=== PATIENT | male | born 1990 | race Caucasian/White ===

== ENCOUNTER 2018-01-25 13:42 | Emergency (ER) | payer MEDICAID ==
[~2018-01-25] VITALS: Ht 170.2 cm; Wt 82.2 kg
[~2018-01-25 13:42] MED LIST: ALBU8HFA PO; CLIN-80 PO; HYDR-3965 PO; IBUP-1986 PO; PENI500T2 PO; PHEN-873 PO
[2018-01-25 14:09] LABS: BASOPHILS % (AUTO) 0.2 % (0-1); EOSINOPHILS # (AUTO) 0.3 X10'3 (0-0.9); EOSINOPHILS % (AUTO) 3.1 % (0-6); HEMATOCRIT 45.8 % (42.0-52.0); HEMOGLOBIN 16.1 g/dl (14.0-17.9); LYMPHOCYTES # (AUTO) 1.4 X10'3 (1.1-4.8); MEAN CORPUSCULAR HEMOGLOBIN 32.9 PG (27.0-31.0); MEAN CORPUSCULAR HGB CONC 35.3 % (33.0-36.5); MEAN CORPUSCULAR VOLUME 93.2 FL (78-98); MEAN PLATELET VOLUME 8.3 FL (7.4-10.4); MONOCYTES # (AUTO) 0.7 X10'3 (0-0.9); MONOCYTES % (AUTO) 7.5 % (2-12); NEUTROPHILS # (AUTO) 6.7 X10'3 (1.8-7.7); NEUTROPHILS % (AUTO) 74.2 % (42-75); PLATELET COUNT 260 X10'3 (140-440); RED BLOOD COUNT 4.91 X10'6 (4.70-6.10); RED CELL DISTRIBUTION WIDTH 12.9 % (11.5-14.5); WHITE BLOOD COUNT 9.1 X10'3 (4.5-11.0)
[2018-01-25 14:24] LABS: ALANINE AMINOTRANSFERASE 45 U/L (12-78); ALBUMIN 4.3 G/DL (3.4-5.0); ALBUMIN/GLOBULIN RATIO 1.1 (1.1-1.5); ALKALINE PHOSPHATASE 85 IU/L (46-116); ANION GAP 8 (8-16); ASPARTATE AMINO TRANSFERASE 22 U/L (10-37); BILIRUBIN,TOTAL 0.4 MG/DL (0.1-1.0); BLOOD UREA NITROGEN 12 MG/DL (7-18); BUN/CREATININE RATIO 11.7 (5.4-32.0); CALCIUM 9.4 MG/DL (8.5-10.1); CHLORIDE 104 MMOL/L (99-107); CREATININE 1.03 MG/DL (0.60-1.10); GLUCOSE 102 MG/DL (70-104); POTASSIUM 4.1 MMOL/L (3.5-5.1); SODIUM 141 MMOL/L (135-145); TOTAL CARBON DIOXIDE 28.6 MMOL/L (24-32); TOTAL PROTEIN 8.3 G/DL (6.4-8.2); eGFR 87 ML/MIN
[2018-01-25] MEDS ORDERED: PRED20TA PO (18:17)
[2018-01-25] MEDS ORDERED: AZIT-63 PO (18:17)
[2018-01-25] MEDS ORDERED: predniSONE 20 mg tablet PO ONE (18:20)
[2018-01-25] MEDS ORDERED: ipratropium/albuterol 3ml nebule NEB ONE (18:25)
[2018-01-25 18:47] VITALS: BP 163/72
== END 2018-01-25 19:00 | disposition home or self-care (01) ==
LOC: ER 13:42
DX: J45.909 Unspecified asthma, uncomplicated (principal); Z79.899 Other long term (current) drug therapy
CPT/HCPCS: 36415; 71045; 80053; 84484; 85025; 93005; 94640; 94760; 99285; J7512

== ENCOUNTER 2018-10-15 20:40 | Emergency (ER) | payer MEDICAID ==
[~2018-10-15] VITALS: Ht 172.7 cm; Wt 81.7 kg
[~2018-10-15 20:40] MED LIST changes: -CLIN-80 PO; +CLIN300C85 PO; +PHEN-786 PO; -PHEN-873 PO
[2018-10-15 21:18] LABS: CLARITY,URINE CLEAR (Clear); COLOR,URINE RED (Yellow); UA COLLECTION TYPE VOIDED
[2018-10-15] MEDS ORDERED: ondansetron/PF 4mg/2ml inj IV ONE (21:25)
[2018-10-15] MEDS ORDERED: normal saline 1000ML IV soln IVB ONE (21:25)
[2018-10-15 21:29] LABS: BACTERIA,URINE FEW /HPF (Neg); RBC,URINE NONE SEEN /HPF (0-2)
[2018-10-15 21:30] LABS: MUCUS STRANDS MODERATE /LPF (Neg); SQUAMOUS EPITHELIAL CELL,UR FEW /LPF (FEW)
[2018-10-15 21:37] LABS: BASOPHILS # (AUTO) 0.1 X10'3 (0-0.2); BASOPHILS % (AUTO) 0.6 % (0-1); EOSINOPHILS # (AUTO) 0.1 X10'3 (0-0.9); EOSINOPHILS % (AUTO) 1.4 % (0-6); HEMATOCRIT 49.3 % (42.0-52.0); HEMOGLOBIN 16.7 g/dl (14.0-17.9); LYMPHOCYTES # (AUTO) 4.9 X10'3 (1.1-4.8); LYMPHOCYTES % (AUTO) 48.5 % (21-51); MEAN CORPUSCULAR HEMOGLOBIN 31.6 PG (27.0-31.0); MEAN CORPUSCULAR HGB CONC 33.9 % (33.0-36.5); MEAN CORPUSCULAR VOLUME 93.3 FL (78-98); MEAN PLATELET VOLUME 7.7 FL (7.4-10.4); MONOCYTES # (AUTO) 0.9 X10'3 (0-0.9); MONOCYTES % (AUTO) 9.2 % (2-12); NEUTROPHILS # (AUTO) 4.1 X10'3 (1.8-7.7); NEUTROPHILS % (AUTO) 40.3 % (42-75); PLATELET COUNT 284 X10'3 (140-440); RED BLOOD COUNT 5.28 X10'6 (4.70-6.10); RED CELL DISTRIBUTION WIDTH 14.2 % (11.5-14.5); WHITE BLOOD COUNT 10.2 X10'3 (4.5-11.0)
[2018-10-15 21:53] LABS: ALANINE AMINOTRANSFERASE 60 U/L (12-78); ALBUMIN 4.3 G/DL (3.4-5.0); ALBUMIN/GLOBULIN RATIO 0.9 (1.1-1.5); ALKALINE PHOSPHATASE 117 IU/L (46-116); ANION GAP 10 (8-16); BILIRUBIN,TOTAL 0.7 MG/DL (0.1-1.0); BLOOD UREA NITROGEN 9 MG/DL (7-18); BUN/CREATININE RATIO 10.1 (5.4-32.0); CALCIUM 9.6 MG/DL (8.5-10.1); CHLORIDE 101 MMOL/L (99-107); CREATININE 0.89 MG/DL (0.60-1.10); GLUCOSE 108 MG/DL (70-104); LIPASE 105 U/L (73-393); SODIUM 137 MMOL/L (135-145); TOTAL CARBON DIOXIDE 25.9 MMOL/L (24-32); TOTAL PROTEIN 8.9 G/DL (6.4-8.2); eGFR > 90 ML/MIN
[2018-10-15 21:55] LABS: ASPARTATE AMINO TRANSFERASE 51 U/L (10-37); POTASSIUM 4.1 MMOL/L (3.5-5.1)
[2018-10-15 22:56] VITALS: BP 140/89
[2018-10-15 23:07] LABS: CLARITY,URINE CLEAR (Clear); COLOR,URINE ORANGE (Yellow)
[2018-10-15 23:22] LABS: UA COLLECTION TYPE CLN CATCH MIDSTREAM
[2018-10-15 23:29] LABS: BACTERIA,URINE FEW /HPF (Neg); MUCUS STRANDS MODERATE /LPF (Neg); RBC,URINE NONE SEEN /HPF (0-2)
[2018-10-15 23:30] LABS: SQUAMOUS EPITHELIAL CELL,UR FEW /LPF (FEW)
[2018-10-16 01:09] LABS: EOSINOPHILS % (MANUAL) 1 % (0-6); TOTAL CELLS COUNTED 100
[2018-10-16 01:10] LABS: PLATELET ESTIMATE NORMAL
== END 2018-10-16 00:11 | disposition home or self-care (01) ==
LOC: ER 20:41
DX: M54.5 Low back pain (principal); R11.2 Nausea with vomiting, unspecified; R10.9 Unspecified abdominal pain; J45.909 Unspecified asthma, uncomplicated; G89.29 Other chronic pain
CPT/HCPCS: 36415; 74176; 80053; 81001; 83690; 85025; 87088; 96361; 96374; 99284; J2405; J7030

== ENCOUNTER 2018-11-19 07:44 | Emergency (ER) | payer MEDICAID ==
[~2018-11-19] VITALS: Ht 170.2 cm; Wt 77.3 kg
[2018-11-19 08:00] VITALS: BP 127/69
[2018-11-19] MEDS ORDERED: NYST1000 PO (08:24)
[2018-11-19] MEDS ORDERED: GUAI473S11 PO (08:24)
== END 2018-11-19 08:37 | disposition home or self-care (01) ==
LOC: ER 07:45
DX: B37.0 Candidal stomatitis (principal); R05 Cough; R53.83 Other fatigue; J45.909 Unspecified asthma, uncomplicated; G89.29 Other chronic pain; F41.9 Anxiety disorder, unspecified; Z79.899 Other long term (current) drug therapy
CPT/HCPCS: 99283

== ENCOUNTER 2020-06-01 14:06 | Emergency (ER) | payer BC, MEDICAID ==
[~2020-06-01] VITALS: Ht 177.8 cm; Wt 90.0 kg
[~2020-06-01 14:06] MED LIST changes: +CLIN-97 PO; -CLIN300C85 PO
[2020-06-01 14:55] LABS: CLARITY,URINE CLOUDY (Clear); COLOR,URINE YELLOW (Yellow); GLUCOSE, URINE NEGATIVE (Neg); KETONES,URINE TRACE mg/dl (Neg); LEUKOCYTE ESTERASE ,URINE NEGATIVE (Neg); NITRITES, URINE NEGATIVE (Neg); OCCULT BLOOD,URINE LARGE (Neg); PH,URINE 5.5 (4.8-8.0); PROTEIN,URINE 30 mg/dl (Neg); UA COLLECTION TYPE CLN CATCH MIDSTREAM; UROBILINOGEN,URINE 0.2 E.U/dL (0.2-1.0)
[2020-06-01 15:03] LABS: MUCUS STRANDS MANY /LPF (Neg); SQUAMOUS EPITHELIAL CELL,UR MANY /LPF (FEW)
[2020-06-01 15:04] LABS: RBC,URINE TNTC /HPF (0-2)
[2020-06-01 15:05] LABS: BACTERIA,URINE 1+ /HPF (Neg); WBC CLUMPS,URINE FEW /HPF (NEGATIVE)
--- NOTE | 2020-06-01 15:27 | NUR ---
Dr Correia at bedside.
[2020-06-01 15:28] VITALS: BP 135/90
[2020-06-01] MEDS ORDERED: morphine 4 MG/ML inj SYRINge IV PRN (15:30)
[2020-06-01] MEDS ORDERED: ketorolac tromethamine 15mg/ml inj. IV ONE (15:30)
[2020-06-01] MEDS ORDERED: ondansetron/PF 4mg/2ml inj IV ONE (15:30)
[2020-06-01] MEDS ORDERED: normal saline 1000ML IV soln IVB ONE (15:30)
--- NOTE | 2020-06-01 15:56 | NUR ---
Pt wants to wait on the Morphine until he sees how he does with the Toradol.
[2020-06-01 15:59] LABS: BASOPHILS % (AUTO) 0.3 % (0-1); EOSINOPHILS # (AUTO) 0.5 X10'3 (0-0.9); EOSINOPHILS % (AUTO) 3.4 % (0-6); HEMATOCRIT 49.6 % (42.0-52.0); LYMPHOCYTES # (AUTO) 1.5 X10'3 (1.1-4.8); LYMPHOCYTES % (AUTO) 11.3 % (21-51); MEAN CORPUSCULAR HEMOGLOBIN 32.2 PG (27.0-31.0); MEAN CORPUSCULAR HGB CONC 34.3 g/dL (33.0-36.5); MEAN PLATELET VOLUME 8.4 FL (7.4-10.4); MONOCYTES # (AUTO) 1.1 X10'3 (0-0.9); NEUTROPHILS # (AUTO) 10.4 X10'3 (1.8-7.7); PLATELET COUNT 237 X10'3 (140-440); RED BLOOD COUNT 5.28 X10'6 (4.70-6.10); RED CELL DISTRIBUTION WIDTH 12.5 % (11.5-14.5); WHITE BLOOD COUNT 13.5 X10'3 (4.5-11.0)
[2020-06-01 16:12] LABS: ALANINE AMINOTRANSFERASE 66 U/L (12-78); ALBUMIN 4.4 G/DL (3.4-5.0); ALBUMIN/GLOBULIN RATIO 1.2 (1.1-1.5); ALKALINE PHOSPHATASE 106 IU/L (46-116); ANION GAP 9 (8-16); ASPARTATE AMINO TRANSFERASE 36 U/L (10-37); BILIRUBIN,TOTAL 0.4 MG/DL (0.1-1.0); BLOOD UREA NITROGEN 16 MG/DL (7-18); CALCIUM 9.4 MG/DL (8.5-10.1); CHLORIDE 107 MMOL/L (99-107); CREATININE 1.14 MG/DL (0.60-1.10); GLUCOSE 101 MG/DL (70-104); LIPASE 105 U/L (73-393); SODIUM 142 MMOL/L (135-145); TOTAL PROTEIN 8.1 G/DL (6.4-8.2); eGFR 75 ML/MIN
--- NOTE | 2020-06-01 16:15 | NUR ---
Pt resting quietly on gurney. Respirations unlabored. NAD
[2020-06-01] MEDS ORDERED: IBUP-1986 PO (16:31)
[2020-06-01] MEDS ORDERED: HYDR-4353 PO (16:31)
== END 2020-06-01 16:57 | disposition home or self-care (01) ==
LOC: ER 14:07
DX: N23 Unspecified renal colic (principal); R11.0 Nausea; J45.909 Unspecified asthma, uncomplicated; G89.29 Other chronic pain; F41.9 Anxiety disorder, unspecified; F17.200 Nicotine dependence, unspecified, uncomplicated; Z79.2 Long term (current) use of antibiotics; Z79.899 Other long term (current) drug therapy
CPT/HCPCS: 36415; 80053; 81001; 83690; 85025; 96374; 96375; 99284; J1885; J2405; J7030

== ENCOUNTER 2020-06-14 11:18 | Emergency (ER) | payer BC ==
[~2020-06-14] VITALS: Ht 172.7 cm; Wt 85.6 kg
[~2020-06-14 11:18] MED LIST changes: +HYDR-4353 PO
[2020-06-14 12:10] LABS: CLARITY,URINE CLEAR (Clear); GLUCOSE, URINE NEGATIVE (Neg); KETONES,URINE TRACE mg/dl (Neg); LEUKOCYTE ESTERASE ,URINE NEGATIVE (Neg); NITRITES, URINE NEGATIVE (Neg); OCCULT BLOOD,URINE TRACE-LYSED (Neg); PH,URINE 5.5 (4.8-8.0); PROTEIN,URINE NEGATIVE (Neg); UROBILINOGEN,URINE 0.2 E.U/dL (0.2-1.0)
[2020-06-14 12:14] LABS: COLOR,URINE DARK YELLOW (Yellow); UA COLLECTION TYPE CLN CATCH MIDSTREAM
[2020-06-14] MEDS ORDERED: ketorolac trometh. 30mg/ml inj. IM ONE (12:25)
[2020-06-14] MEDS ORDERED: HYDROcodone/acetaminophen 10/325mg tab PO ONE (12:25)
[2020-06-14 12:34] LABS: BACTERIA,URINE NONE SEEN /HPF (Neg); MUCUS STRANDS FEW /LPF (Neg); RBC,URINE 0-2 /HPF (0-2); SQUAMOUS EPITHELIAL CELL,UR FEW /LPF (FEW); WBC,URINE 0-4 /HPF (0-4)
[2020-06-14] MEDS ORDERED: HYDR-3973 PO (13:15)
[2020-06-14] MEDS ORDERED: FLO0.4C PO (13:15)
[2020-06-14 13:35] VITALS: BP 146/98
== END 2020-06-14 13:37 | disposition home or self-care (01) ==
LOC: ER 11:18
DX: N20.0 Calculus of kidney (principal); J45.909 Unspecified asthma, uncomplicated; G89.29 Other chronic pain; F41.9 Anxiety disorder, unspecified; Z87.891 Personal history of nicotine dependence; Z79.2 Long term (current) use of antibiotics; Z79.899 Other long term (current) drug therapy
CPT/HCPCS: 74176; 81001; 96372; 99284; J1885

== ENCOUNTER 2020-09-06 22:18 | Emergency (ER) | payer BC ==
[~2020-09-06] VITALS: Ht 175.3 cm; Wt 88.6 kg
[~2020-09-06 22:18] MED LIST changes: +DICY10CA88 PO; -HYDR-4353 PO
[2020-09-06] MEDS ORDERED: normal saline 1000ML IV soln IVB ONE (23:15)
[2020-09-06 23:19] LABS: BASOPHILS # (AUTO) 0.1 X10'3 (0-0.2); BASOPHILS % (AUTO) 0.6 % (0-1); EOSINOPHILS # (AUTO) 0.6 X10'3 (0-0.9); EOSINOPHILS % (AUTO) 5.3 % (0-6); HEMOGLOBIN 17.8 g/dl (14.0-17.9); LYMPHOCYTES # (AUTO) 3.1 X10'3 (1.1-4.8); LYMPHOCYTES % (AUTO) 27.4 % (21-51); MEAN CORPUSCULAR HEMOGLOBIN 32.6 PG (27.0-31.0); MEAN CORPUSCULAR HGB CONC 34.8 g/dL (33.0-36.5); MEAN CORPUSCULAR VOLUME 93.5 FL (78-98); MEAN PLATELET VOLUME 8.7 FL (7.4-10.4); MONOCYTES # (AUTO) 1.1 X10'3 (0-0.9); MONOCYTES % (AUTO) 9.5 % (2-12); NEUTROPHILS # (AUTO) 6.5 X10'3 (1.8-7.7); NEUTROPHILS % (AUTO) 57.2 % (42-75); PLATELET COUNT 255 X10'3 (140-440); RED BLOOD COUNT 5.45 X10'6 (4.70-6.10); RED CELL DISTRIBUTION WIDTH 12.6 % (11.5-14.5); WHITE BLOOD COUNT 11.4 X10'3 (4.5-11.0)
[2020-09-06 23:28] LABS: ALANINE AMINOTRANSFERASE 46 U/L (12-78); ALBUMIN 4.5 G/DL (3.4-5.0); ALBUMIN/GLOBULIN RATIO 1.1 (1.1-1.5); ALKALINE PHOSPHATASE 113 IU/L (46-116); ANION GAP 7 (8-16); ASPARTATE AMINO TRANSFERASE 26 U/L (10-37); BILIRUBIN,TOTAL 0.3 MG/DL (0.1-1.0); BLOOD UREA NITROGEN 11 MG/DL (7-18); CALCIUM 9.1 MG/DL (8.5-10.1); CHLORIDE 105 MMOL/L (99-107); GLUCOSE 96 MG/DL (70-104); POTASSIUM 3.4 MMOL/L (3.5-5.1); SODIUM 139 MMOL/L (135-145); TOTAL CARBON DIOXIDE 27.1 MMOL/L (24-32); TOTAL PROTEIN 8.7 G/DL (6.4-8.2); eGFR 79 ML/MIN
[2020-09-06 23:39] LABS: D-DIMER 0.21 MG/L FEU (0-0.50)
[2020-09-07 00:24] VITALS: BP 108/63
== END 2020-09-07 00:27 | disposition home or self-care (01) ==
LOC: ER 22:19
DX: R07.89 Other chest pain (principal); M79.602 Pain in left arm; R42 Dizziness and giddiness; J45.909 Unspecified asthma, uncomplicated; G89.29 Other chronic pain; F41.9 Anxiety disorder, unspecified; F17.200 Nicotine dependence, unspecified, uncomplicated; Z79.2 Long term (current) use of antibiotics; Z79.899 Other long term (current) drug therapy
CPT/HCPCS: 36415; 71045; 80053; 82948; 83880; 84443; 84484; 85025; 85379; 93005; 96360; 99285; J7030

== ENCOUNTER 2020-10-04 16:21 | Emergency (ER) | payer BC ==
[~2020-10-04] VITALS: Ht 172.7 cm; Wt 86.4 kg
[2020-10-04 16:25] VITALS: BP 146/95
== END 2020-10-04 17:08 | disposition home or self-care (01) ==
LOC: ER 16:22
DX: R50.9 Fever, unspecified (principal); R51.9 Headache, unspecified; M79.10 Myalgia, unspecified site; J44.9 Chronic obstructive pulmonary disease, unspecified; G89.29 Other chronic pain; M54.9 Dorsalgia, unspecified; F41.9 Anxiety disorder, unspecified; F17.200 Nicotine dependence, unspecified, uncomplicated; Z79.899 Other long term (current) drug therapy
CPT/HCPCS: 36415; 87635; 99283

== ENCOUNTER 2022-07-15 14:53 | Emergency (ER) | payer BC ==
[~2022-07-15] VITALS: Ht 172.7 cm; Wt 86.4 kg
[2022-07-15 15:35] VITALS: BP 100/64
--- NOTE | 2022-07-15 16:05 | NUR ---
Positive COVID called received from Lab.
== END 2022-07-15 21:25 | disposition left against medical advice (07) ==
LOC: ER 14:54
DX: U07.1 COVID-19 (principal); M54.89 Other dorsalgia; Z53.21 Procedure and treatment not carried out due to patient leaving prior to being seen by health care provider
CPT/HCPCS: 87635; C9803

== ENCOUNTER 2022-11-23 21:07 | Emergency (ER) | payer BC ==
[~2022-11-23] VITALS: Ht 172.7 cm; Wt 86.4 kg
[2022-11-23 21:44] LABS: CLARITY,URINE SLIGHTLY CLOUDY (Clear); COLOR,URINE YELLOW (Yellow); GLUCOSE, URINE NEGATIVE (Neg); KETONES,URINE NEGATIVE (Neg); LEUKOCYTE ESTERASE ,URINE NEGATIVE (Neg); NITRITES, URINE NEGATIVE (Neg); OCCULT BLOOD,URINE TRACE-INTACT (Neg); PROTEIN,URINE NEGATIVE (Neg); UROBILINOGEN,URINE 0.2 E.U/dL (0.2-1.0)
[2022-11-23 21:49] LABS: UA COLLECTION TYPE VOIDED
[2022-11-23 21:50] LABS: MUCUS STRANDS MODERATE /LPF (Neg); SQUAMOUS EPITHELIAL CELL,UR MODERATE /LPF (FEW)
[2022-11-23 21:51] LABS: WBC,URINE 20-30 /HPF (0-4)
[2022-11-23 21:53] LABS: BACTERIA,URINE FEW /HPF (Neg); WBC CLUMPS,URINE FEW /HPF (NEGATIVE)
[2022-11-23 21:56] LABS: BASOPHILS % (AUTO) 0.3 % (0-1); EOSINOPHILS # (AUTO) 0.3 X10'3 (0-0.9); EOSINOPHILS % (AUTO) 2.3 % (0-6); HEMATOCRIT 48.7 % (42.0-52.0); LYMPHOCYTES % (AUTO) 23.2 % (21-51); MEAN CORPUSCULAR HEMOGLOBIN 31.7 PG (27.0-31.0); MEAN CORPUSCULAR VOLUME 90.6 FL (78-98); MEAN PLATELET VOLUME 8.4 FL (7.4-10.4); MONOCYTES # (AUTO) 1.3 X10'3 (0-0.9); NEUTROPHILS # (AUTO) 8.3 X10'3 (1.8-7.7); NEUTROPHILS % (AUTO) 64.2 % (42-75); PLATELET COUNT 253 X10'3 (140-440); RED BLOOD COUNT 5.38 X10'6 (4.70-6.10); RED CELL DISTRIBUTION WIDTH 12.7 % (11.5-14.5); WHITE BLOOD COUNT 12.9 X10'3 (4.5-11.0)
[2022-11-23 22:12] LABS: ALANINE AMINOTRANSFERASE 54 U/L (12-78); ALBUMIN 3.7 G/DL (3.4-5.0); ALBUMIN/GLOBULIN RATIO 0.9 (1.1-1.5); ALKALINE PHOSPHATASE 121 IU/L (46-116); ANION GAP 10 (8-16); ASPARTATE AMINO TRANSFERASE 31 U/L (10-37); BILIRUBIN,TOTAL 0.4 MG/DL (0.1-1.0); BLOOD UREA NITROGEN 11 MG/DL (7-18); BUN/CREATININE RATIO 11.8 (5.4-32.0); CALCIUM 8.6 MG/DL (8.5-10.1); CHLORIDE 104 MMOL/L (99-107); CREATININE 0.93 MG/DL (0.60-1.10); GLUCOSE 115 MG/DL (70-104); LIPASE 87 U/L (73-393); POTASSIUM 3.5 MMOL/L (3.5-5.1); SODIUM 137 MMOL/L (135-145); TOTAL CARBON DIOXIDE 23.4 MMOL/L (24-32); TOTAL PROTEIN 7.9 G/DL (6.4-8.2); eGFR > 90 ML/MIN
[2022-11-23] MEDS ORDERED: normal saline 1000ML IV soln IVB ONE (23:20)
[2022-11-23] MEDS ORDERED: ketorolac trometh. 30mg/ml inj. IV ONE (23:20)
[2022-11-24] MEDS ORDERED: levoFLOXACIN-Levaquin 750MG/D5 150 ML IV STA (01:02)
[2022-11-24] MEDS ORDERED: metoclopramide 5 mg/ml inj IV ONE (01:05)
[2022-11-24] MEDS: morphine 4 MG/ML inj SYRINge IV ONE ×2 (01:05→01:16)
[2022-11-24] MEDS ORDERED: TRAM1TAB7 PO (01:11)
[2022-11-24] MEDS ORDERED: ONDA4TAB12 PO (01:11)
[2022-11-24] MEDS ORDERED: LEVO-65 PO (01:11)
[2022-11-24 03:05] VITALS: BP 134/74
== END 2022-11-24 03:15 | disposition home or self-care (01) ==
LOC: ER 21:08
DX: N39.0 Urinary tract infection, site not specified (principal); J44.9 Chronic obstructive pulmonary disease, unspecified; G89.29 Other chronic pain; F41.9 Anxiety disorder, unspecified; F17.200 Nicotine dependence, unspecified, uncomplicated; Z87.442 Personal history of urinary calculi; Z79.899 Other long term (current) drug therapy
CPT/HCPCS: 36415; 74176; 80053; 81001; 83690; 85025; 87088; 96361; 96365; 96366; 96375; 99284; J1885; J1956; J2765; J7030; J2270

== ENCOUNTER 2024-07-19 18:07 | Emergency (ER) | payer BC ==
[~2024-07-19] VITALS: Ht 170.2 cm; Wt 86.4 kg
[~2024-07-19 18:07] MED LIST changes: +ONDA-243 PO
[2024-07-19] MEDS: meperidine/PF 50mg/ml syringe IV ONE (18:30)
[2024-07-19] MEDS: ketorolac trometh 30MG/ML vial 30 MG/ML VIAL IV ONE (18:30)
[2024-07-19] MEDS: normal saline 1000ML IV soln IVB ONE ×2 (18:32→19:51)
[2024-07-19] MEDS: sildenafil citrate 20mg tablet PO SCH (18:56)
--- NOTE | 2024-07-19 19:34 | NUR ---
pain improved from day shift interventions. pt to xray [id number], return ed#[id number]. oral med adm per order (see MAR). ivf re-connected. urine obtained and walked to lab by RN approx 1924.
[2024-07-19 19:45] LABS: BILIRUBIN,URINE NEGATIVE (Neg); CLARITY,URINE SLIGHTLY CLOUDY (Clear); COLOR,URINE YELLOW (Yellow); GLUCOSE, URINE NEGATIVE (Neg); KETONES,URINE TRACE mg/dl (Neg); LEUKOCYTE ESTERASE ,URINE NEGATIVE (Neg); NITRITES, URINE NEGATIVE (Neg); OCCULT BLOOD,URINE MODERATE (Neg); PROTEIN,URINE NEGATIVE (Neg)
[2024-07-19 19:51] LABS: UA COLLECTION TYPE VOIDED
[2024-07-19 19:52] LABS: SQUAMOUS EPITHELIAL CELL,UR MODERATE /LPF (FEW)
[2024-07-19 19:55] LABS: BACTERIA,URINE FEW /HPF (Neg); WBC,URINE 0-4 /HPF (0-4)
[2024-07-19 19:56] LABS: MUCUS STRANDS FEW /LPF (Neg)
[2024-07-19] MEDS ORDERED: TADA5TAB2 PO (21:06)
[2024-07-19 21:44] VITALS: BP 136/87; PULSE 74; RESP 16; TEMP 98.7; O2SAT 96
== END 2024-07-19 21:48 | disposition home or self-care (01) ==
LOC: ER 18:07
DX: N23 Unspecified renal colic (principal); J44.9 Chronic obstructive pulmonary disease, unspecified; F41.9 Anxiety disorder, unspecified; Z79.2 Long term (current) use of antibiotics; Z79.1 Long term (current) use of non-steroidal anti-inflammatories (NSAID)
CPT/HCPCS: 74018; 81001; 96361; 96374; 96375; 99284; J1885; J2175; J7030; A6446

== ENCOUNTER → 2025-07-10 | Emergency (ER) | payer BC ==
[~2025-07-10] VITALS: Ht 170.2 cm; Wt 88.0 kg
[~2025-07-10] MED LIST changes: +AMOX-117 PO; +CLIN-224 PO; -CLIN-97 PO; +METR-159 PO; +ONDA-245 PO; +ketorolac trometh 30MG/ML vial 30 MG/ML VIAL IM ONE
[2025-07-10 08:45] VITALS: TEMP 97
--- NOTE | 2025-07-10 09:15 | Physician Documentation ---
History of Present Illness ~ Chief Complaint: Abscess Stated Complaint: ABSCESS Time Seen by MD: 09:15 Primary Medical Doctor: Sd HPI 35-year-old male presents with abscess to coccyx, notes history of this in the past, but never quite this severe. No chills or fever, but does endorse nausea. This is found to be a pilonidal abscess on exam. Tetanus Within 5 Years: Yes Medication Reconciliation Allergies: Coded Allergies: No Known Allergies (Unverified , 11/23/22) Scheduled Amox Tr/Potassium Clavulanate (Augmentin 875-125 Tablet), 1 TAB PO Q12H Clindamycin HCL* (Clindamycin HCL*), 1 CAP PO Q6H Dicyclomine Hcl* (Bentyl*), 1 CAP PO Q12H Ibuprofen (Ibuprofen), 1 TAB PO Q8H Ibuprofen (Ibuprofen), 1 TAB PO Q8H Metronidazole* (Flagyl*), 1 TAB PO Q8H Penicillin V Potassium* (Penicillin VK*), 500 MG PO Q6H Phenazopyridine Hcl (Pyridium tablet), 200 MG PO TID Scheduled PRN Hydrocodone Bit/Acetaminophen 5/325 MG ([place] 5/325 MG), 1 TAB PO Q4H PRN for moderate or severe pain ONDANSETRON ODT 4mg tablet (Ondansetron Odt), 1 TABLET PO Q6H PRN for nausea/vomiting Ondansetron 8mg ODT (Ondansetron Odt), 1 TAB PO TID PRN for nausea/vomiting albuterol inhaler (Pro-Air Inhaler), 1-2 PUFFS PO Q4H PRN for SOB or wheezing Past Medical History Past Medical History: Asthma, COPD, Kidney Stones, Chronic Back Pain, Anxiety Past Surgical History: noncontributory Alcohol Use: None Drug Use: none Lives with: S/O Lives In: Home Occupation: employed Physical Exam Vital Signs: Temperature: 97.0, Source: Temporal, Heart Rate: 102, Respiratory Rate: 16, BP: 146/100, Pulse Oximetry: 98, Weight: 88.000 Oxygen Flow Rate: 0 Physical Exam General: Alert, no apparent distress. Neck: Full range of motion. Respiratory: Lungs clear, no respiratory distress. Chest: No accessory muscle use. Cardiovascular: Regular rate and rhythm, no murmurs. Gastrointestinal: Soft, nontender, nondistended. Bowels sounds present. Extremities: Normal range of motion, no deformity. Neurologic: Oriented x4. Psychiatric: Normal mood and affect. Skin: Normal color, warm and dry. No edema, no ecchymosis. Approx 4 cm erythematous raised abscess/pilonidal cyst. Procedures Procedures Informed verbal consent obtained for an I and D of the pilonidal abscess. This was then accomplished by clean the skin thoroughly with Betadine, anesthetizing with 2 mL of 1% lidocaine with epi to good effect. Eleven blade used to make a small incision in the center of the abscess area for release of foul-smelling purulence. Culture was obtained. Small amount of packing placed. Covered with dressing. Patient to return tomorrow for removal of packing. Progress Results/Orders Results/Orders Orders - ROSHAN TERRY NP Laceration/I&D Tray Set Up (07/10/25 09:19) Wound Care Orders (07/10/25 09:19) Ketorolac Trometh 30mg/Ml Vial (Toradol (07/10/25 10:00) Completed Orders - ROSHAN TERRY NP Lidocaine 1% W/Epi 1:200,000 (Xylocaine (07/10/25 09:20) Tetanus/Pertuss/Diph Acell/Pf (Boostrix (07/10/25 09:20) Lidocaine 1%/Epi 1:100,000 Inj (Xylocain (07/10/25 09:40) Vital Signs 07/10/25 07/10/25 08:45 09:29 Temp 97.0 Pulse 102 100 Resp 16 16 B/P (MAP) 146/100 118/94 (102) Pulse Ox 98 97 O2 Flow Rate 0 0 Medical Decision Making Differential Dx:Considerations: Include: Abscess, Bacteremia, Cellulitis, Erysipelas, Felon, Gas gangrene, Hidrademitis suppurativa, Impetigo, Lymphangitis, Osteromyelitis, Paronychia, Septicemia Additional Comment This is a 35-year-old male who presents due to an abscess on his coccyx. He notes that this has flared in the past but never quite this bad. Has become very painful over the last 24 hours, but he denies fevers or chills. He does endorse having some nausea. The pilonidal abscess was opened and drained large amount of thick yellow purulence. Culture was sent. Patient will be treated with Augmentin and Flagyl, he is to return tomorrow for removal of packing. He is return sooner if worse. Departure Time of Disposition: 09:20 Disposition: 01 HOME / SELF CARE / HOMELESS Impression: Primary Impression: Pilonidal cyst with abscess Condition: Stable Discharge Instructions: Pilonidal Cyst Drainage, Care After Additional Instructions: The antibiotics as prescribed. Perform warm moist soaks to the abscess area for 15 minutes 4 times a day. Return tomorrow for packing removal or sooner if at any time you feel worse such as with shaking chills, fever over 101, persistent nausea and vomiting. See your primary care provider within the week and request a referral to a general or colon and rectal surgeon for evaluation of your pilonidal cyst, as it likely needs definitive surgical treatment. Referrals: NO PRIMARY CARE PROVIDER (PCP) Prescriptions Ondansetron 8mg ODT (Ondansetron Odt) 8 Mg Tab.rapdis 1 TAB PO TID PRN for nausea/vomiting, #10 TAB Prov: ROSHAN TERRY NP 07/10/25 Metronidazole* (Flagyl*) 500 Mg Tablet 1 TAB PO Q8H for 7 Days, #21 TAB Prov: ROSHAN TERRY NP 07/10/25 Amox Tr/Potassium Clavulanate (Augmentin 875-125 Tablet) 1 Each Tablet 1 TAB PO Q12H for 7 Days, #14 TAB Prov: ROSHAN TERRY NP 07/10/25 Education Educated: Patient Educated regarding: diagnosis, treatment, prognosis, need for follow up Signature Scribe Signature: x Attestation: The note accurately reflects work and decisions made by me.Roshan Bowman NP 07/10/25 10:04 ROSHAN TERRY NP Jul 10, 2025 09:15
[2025-07-10 09:29] VITALS: BP 118/94; PULSE 100; RESP 16; O2SAT 97
[2025-07-10] MEDS: LIDOcaine 1% W/epiNEPHrine 1:200,000 10ml vial IJ ONE (09:38)
[2025-07-10] MEDS: LIDOCAINE 1%/EPI 1:100,000 inj. 10 ML multi-dose vial IJ ONE (09:40)
[2025-07-10] MEDS: TETanus/Pertussis (Acell)/Diphther VAC/PF (Tdap-Adult) 0.5ml syringe IMVAC ONE (10:06)
== END | disposition home or self-care (01) ==
LOC: ER 08:38 → UNDOADMIN 12:19 → ED HOLD 12:19
DX: L05.01 Pilonidal cyst with abscess (principal); F41.9 Anxiety disorder, unspecified; J44.9 Chronic obstructive pulmonary disease, unspecified; Z79.899 Other long term (current) drug therapy; Z87.442 Personal history of urinary calculi
CPT/HCPCS: 10080; 87070; 87077; 87186; 90471; 90715; 99283; A6407; A6449

== ENCOUNTER 2025-10-28 15:44 | Inpatient (IN) | payer BC ==
[~2025-10-28] VITALS: Ht 172.7 cm; Wt 87.7 kg
[~2025-10-28 15:44] MED LIST changes: -AMOX-117 PO; -METR-159 PO; -ketorolac trometh 30MG/ML vial 30 MG/ML VIAL IM ONE
[2025-10-28 16:16] LABS: MEAN PLATELET VOLUME 9.2 FL (7.4-10.4)
[2025-10-28 16:18] LABS: RED CELL DISTRIBUTION WIDTH 13.1 % (11.5-14.5)
--- NOTE | 2025-10-28 16:20 | RADIOLOGY REPORT ---
CLINICAL HISTORY: CP TECHNIQUE: Single view of the chest was obtained. COMPARISON: CHEST,SINGLE VIEW on DOS: 09/06/20 FINDINGS: The heart size and pulmonary vasculature are normal. The lungs are clear. IMPRESSION: NO ACUTE CARDIOPULMONARY PROCESS.
[2025-10-28 17:18] LABS: CREATININE 1.07 MG/DL (0.60-1.10); PRO BRAIN NATRIURETIC PEPTIDE 98 PG/ML (0-125); TOTAL CARBON DIOXIDE 25.2 MMOL/L (24-32); eCRCL 93 ML/MIN; eGFR 79 ML/MIN
--- NOTE | 2025-10-28 17:33 | ELECTROCARDIOGRAPH REPORT ---
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 BEN Fonseca Measurements Intervals [place] Rate: 41 P: 64 [place]: 125 QRS: 74 QRSD: 99 T: 105 QT: 487 QTc: 403 Interpretive Statements Sinus bradycardia Probable inferior infarct, recent Lateral leads are also involved Baseline wander in lead(s) V2 Electronically Signed On 10-30-2025 16:51:[address] BEN Fonseca Please click the below link to view image of tracing.
--- NOTE | 2025-10-28 18:14 | Physician Documentation ---
History of Present Illness ~ Chief Complaint: Chest Pain Stated Complaint: SHOULDER PAIN Time Seen by MD: 18:11 Primary Medical Doctor: Sd Mode of Arrival: Ambulatory HPI Patient presents to the emergency room for evaluation of left-sided chest pain that has well as bilateral trapezius pain. Onset of symptoms was at 1:30 a.m. this afternoon when he woke up. He has taken some ibuprofen and Tylenol. Patient does smoke but denies history of high blood pressure cholesterol or diabetes or family history of heart attacks. Denies any leg swelling or pain. Denies hormonal supplementation. No nausea or vomiting Medication Reconciliation Allergies: Coded Allergies: No Known Allergies (Unverified , 10/28/25) Scheduled Clindamycin HCL* (Clindamycin HCL*), 1 CAP PO Q6H Dicyclomine Hcl* (Bentyl*), 1 CAP PO Q12H Ibuprofen (Ibuprofen), 1 TAB PO Q8H Ibuprofen (Ibuprofen), 1 TAB PO Q8H Penicillin V Potassium* (Penicillin VK*), 500 MG PO Q6H Phenazopyridine Hcl (Pyridium tablet), 200 MG PO TID Scheduled PRN Hydrocodone Bit/Acetaminophen 5/325 MG ([place] 5/325 MG), 1 TAB PO Q4H PRN for moderate or severe pain ONDANSETRON ODT 4mg tablet (Ondansetron Odt), 1 TABLET PO Q6H PRN for nausea/vomiting Ondansetron 8mg ODT (Ondansetron Odt), 1 TAB PO TID PRN for nausea/vomiting albuterol inhaler (Pro-Air Inhaler), 1-2 PUFFS PO Q4H PRN for SOB or wheezing Past Medical History Past Medical History: Asthma, COPD, Kidney Stones, Chronic Back Pain, Anxiety Past Surgical History: noncontributory Alcohol Use: None Drug Use: none Lives with: S/O Lives In: Home Occupation: employed Review of Systems ROS All review of systems negative except as per HPI Physical Exam Vital Signs: Temperature: 98.2, Source: Oral, Heart Rate: 63, Respiratory Rate: 16, BP: 169/131, Pulse Oximetry: 100, Weight: 87.700 Oxygen Flow Rate: 0 General Appearance General: Patient is awake, alert, oriented x4 in no acute distress Head: Normocephalic and atraumatic. Eyes: Conjunctival normal. EOMI. PERRL. ENT: Mucous membranes moist. Neck: Supple, trachea is midline. Chest: Clear to auscultation bilaterally without rales, rhonchi, or wheezes. There is no accessory muscle use or retractions. Cardiac: RRR without murmurs, gallops, or rubs. Extremities: Normal strength. Normal range of motion. No deformities or edema. No calf tenderness to palpation Progress Progress Note Active chest pain along with EKG changes and elevated troponin discussed with toilet and laundry soap supervisor. He had noted her to expedite therapy STEMI called although current EKG shows no ST-elevation. Results/Orders Results/Orders Orders - MAXIMUS HAINES MD Svn Treatment (10/28/25 18:14) Heparin 25,000 Unit/250ml Bag (Heparin 2 (10/28/25 21:10) Heparin 10,000 Unit/Ml 1ml (Heparin 10,0 (10/28/25 21:10) Cbc/Diff (10/29/25 03:00) Cbc/Diff (10/30/25 03:00) Cbc/Diff (10/31/25 03:00) Cbc/Diff (11/01/25 03:00) Cbc/Diff (11/02/25 03:00) Cardiac Ptt (10/29/25 04:00) Completed Orders - MAXIMUS HAINES MD Ipratropium/Albuterol Nebule (Ipratrop/A (10/28/25 18:15) D-Dimer (10/28/25 18:27) Tramadol Tablet (Ultram Tablet) (10/28/25 18:30) Hs Troponin I W Calculations (10/28/25 19:37) Pt Inr (10/28/25 21:09) PTT (10/28/25 21:09) Cbc/Diff (10/28/25 21:09) Aspirin 325mg Tablet (Aspirin 325mg Tabl (10/28/25 21:10) Morphine 4mg/Ml Inj. (Morphine Inj.) (10/28/25 21:15) Ondansetron Inj. (Zofran 4mg/2ml Vial) (10/28/25 21:15) Heparin 10,000 Unit/Ml 1ml (Heparin 10,0 (10/28/25 21:30) Message To Nursing (10/28/25 21:30) Type And Screen (10/28/25 21:54) Lidocaine 1% 30ml Vial (Xylocaine 1% Via (10/28/25 21:57) Midazolam 1 Mg/Ml 2ml Inj. (Versed 1 Mg/ (10/28/25 21:57) Fentanyl/Pf (Fentanyl 0.05 Mg/Ml Syringe (10/28/25 21:58) Iohexol 350mg/Ml 50ml Inj (Omnipaque 350 (10/28/25 21:58) Heparin 1,000unit/Ml 10ml Vial (Heparin (10/28/25 21:58) Iohexol 350mg/Ml 100ml (Omnipaque 350mg/ (10/28/25 21:58) Heparin 1,000 Units/Ns 500ml (Heparin 1, (10/28/25 21:58) Tirofiban 12.5mg In Ns 250ml (Aggrastat (10/28/25 21:58) Diphenhydramine Inj (Benadryl Inj.) (10/28/25 22:18) Metoprolol Tartrate Inj (Lopressor Iv) (10/28/25 22:36) Phenylephrine 10mg/1 Ml Inj (Vazculep (P (10/28/25 22:40) Atropine Syringe (Atropine Syringe) (10/28/25 22:40) Iohexol 350mg/Ml 100ml (Omnipaque 350mg/ (10/28/25 22:40) Nitroglycerin 500mcg/5ml D5w (Nitroglyce (10/28/25 22:52) Verapamil Inj (Verapamil Inj) (10/28/25 22:55) Iohexol 350mg/Ml 100ml (Omnipaque 350mg/ (10/28/25 23:06) Ticagrelor Tablet (Brilinta Tablet) (10/28/25 23:36) Medications Received in ER Medications (Trade) Dose Ordered Sig/Yong Route PRN Reason Start Time Stop Time Status Last Admin Dose Admin (ipratrop/ albuterol 0.5-3(2.5) MG/3ml nebule) 3 ml ONCE ONCE NEB 10/28/25 18:15 10/28/25 18:16 DC 10/28/25 18:31 3 ML (Ultram tablet) 50 mg ONCE ONCE PO 10/28/25 18:30 10/28/25 18:31 DC 10/28/25 18:46 50 MG Heparin Sodium/ Dextrose 250 ml @ 10 mls/hr Q25H PRN IV TO MAINTAIN PTT WITHIN RANGE 10/28/25 21:10 10/29/25 08:00 10/28/25 21:45 10 MLS/HR (aspirin 325mg tablet) 1 tab ONCE ONCE PO 10/28/25 21:10 10/28/25 21:27 DC 10/28/25 21:31 1 TAB (morphine inj.) 4 mg ONCE ONCE IV 10/28/25 21:15 10/28/25 21:27 DC 10/28/25 21:33 4 MG (Zofran 4mg/2ml vial) 4 mg ONCE ONCE IV 10/28/25 21:15 10/28/25 21:16 DC 10/28/25 21:33 4 MG (heparin 10,000 unit/ml 1ml inj) 4,000 units ONCE ONCE IV 10/28/25 21:30 10/28/25 21:31 DC 10/28/25 21:40 4,000 UNITS Vital Signs 10/28/25 10/28/25 10/28/25 10/28/25 15:53 17:50 17:50 18:32 Temp 98.2 Pulse 63 46 56 Resp 16 13 16 B/P (MAP) 169/131 115/99 (104) Pulse Ox 100 93 99 O2 Delivery Room Air* O2 Flow Rate 0 0 0 FiO2 21 10/28/25 10/28/25 10/28/25 10/28/25 18:36 18:46 19:00 20:00 Pulse 64 53 48 Resp 18 16 16 20 B/P (MAP) 162/110 (127) 131/84 (100) Pulse Ox 98 97 97 O2 Delivery Room Air* O2 Flow Rate 0 0 FiO2 21 10/28/25 10/28/25 21:00 21:33 Pulse 67 Resp 13 16 B/P (MAP) 155/92 (113) Pulse Ox 99 O2 Flow Rate 0 Laboratory Tests Test 10/28/25 16:05 10/28/25 16:57 10/28/25 20:22 10/28/25 21:31 White Blood Count 11.5 H 12.2 H Red Blood Count 5.41 5.20 Hemoglobin 18.1 *H 17.5 Hematocrit 52.4 H 49.7 Mean Corpuscular Volume 96.8 95.6 Mean Corpuscular Hemoglobin 33.5 H 33.7 H Mean Corpuscular Hemoglobin Concent 34.6 35.2 Red Cell Distribution Width 13.1 13.0 Platelet Count 243 258 Mean Platelet Volume 9.2 8.5 Neutrophils (%) (Auto) 71.2 84.6 H Lymphocytes (%) (Auto) 17.1 L 9.9 L Monocytes (%) (Auto) 8.4 5.0 Eosinophils (%) (Auto) 2.6 0.2 Basophils (%) (Auto) 0.7 0.3 Neutrophils # (Auto) 8.2 H 10.3 H Lymphocytes # (Auto) 2.0 1.2 Monocytes # (Auto) 1.0 H 0.6 Eosinophils # (Auto) 0.3 0.0 Basophils # (Auto) 0.1 0.0 CBC Comment D-Dimer 0.25 D-Dimer Comment Troponin I High Sensitivity 61 2041 *H Chemistry Comments Sodium Level 142 Potassium Level 3.8 Chloride Level 105 Carbon Dioxide Level 25.2 Anion Gap 12 Blood Urea Nitrogen 10 Creatinine 1.07 Estimated GFR/1.73 m2 79 BUN/Creatinine Ratio 9.3 L Glucose Level 128 H Calcium Level 9.5 Pro-B-Type Natriuretic Peptide 98 Albumin 4.4 Thyroid Stimulating Hormone (TSH) 5.64 H Free Thyroxine 0.91 Troponin I High Sens Percent Delta 3245 Troponin I Hi Sens Absolute Change 1980 Prothrombin Time 10.5 INR International Normalized Ratio 1.0 Activated Partial Thromboplast Time 24 Coagulation Comments EKG/XRAY/CT/US/VASC/MRI EKG : Additional Comment EKG interpreted by myself shows time of 1608, rate 41, sinus bradycardia, normal axis, nonspecific ST-T changes. Chest X-Ray : Additional Comments Exam: CHEST,SINGLE VIEW CLINICAL HISTORY: CP TECHNIQUE: Single view of the chest was obtained. COMPARISON: CHEST,SINGLE VIEW on DOS: 09/06/20 FINDINGS: The heart size and pulmonary vasculature are normal. The lungs are clear. IMPRESSION: NO ACUTE CARDIOPULMONARY PROCESS. Medical Decision Making Additional information obtaine: N/A Findings Patient presents to the emergency room with chest and shoulder pain. Differentials include but are not limited to ACS, musculoskeletal pain, reflux, pericarditis therefore emergent labs and imaging indicated. Initial troponin was reassuring. There was some delay in obtaining the 2nd troponin secondary to hemolysis and confusion regarding redrawn the 2nd troponin. Second troponin resulted and that has elevated therefore immediate aspirin heparin ordered. Initial EKG showed nonspecific ST-T changes however repeat that has actually improved. This was discussed with toilet and laundry soap supervisor. After reviewing EKGs in [facility] we have agreed that patient needs to be brought to the analytical lab technician. Heart Score: 3 Differential Dx:Considerations: Include: angina, aortic dissection, chest wall pain, cholelithiasis, CHF, costochondritis, esophageal reflux/spasm, gastritis, herpes zoster, myocardial infarction, pericarditis, pleuritis, pancreatitis, pneumonia, pneumothorax, pulmonary embolus, other Departure Impression: Primary Impression: Polycythemia Additional Impressions: Subclinical hypothyroidism NSTEMI (non-ST elevated myocardial infarction) Condition: Critical Additional Instructions: \ Referrals: NO PRIMARY CARE PROVIDER (PCP) Critical Care Note Total Time (mins): 46 Critical Care Note The very real possibility of a deterioration of this patient's condition required the highest level of my preparedness for sudden, emergent intervention. I provided critical care services, which included medication orders, frequent reevaluations of the patient's condition and response to treatment, ordering and reviewing test results, and discussing the case with various consultants. E xcludes time spent performing separately billable procedures. The critical care time associated with the care of the patient was 46 minutes not counting procedures Signature Scribe Signature: No scribe Attestation: The note accurately reflects work and decisions made by me.Maximus Haines MD 10/29/25 01:33 MAXIMUS HAINES MD Oct 28, 2025 18:14
[2025-10-28] MEDS: ipratropium/albuterol 3ml nebule NEB ONE (18:31)
[2025-10-28 18:32] VITALS: PULSE 56; RESP 16; O2SAT 99
[2025-10-28 18:36] VITALS: PULSE 64; RESP 18; O2SAT 98
[2025-10-28] MEDS ORDERED: heparin 10,000 units/1 ML INJ IV PRN (21:10)
[2025-10-28] MEDS ORDERED: heparin 10,000 units/1 ML INJ IV ONE (21:10)
[2025-10-28] MEDS: ondansetron/PF 4mg/2ml inj IV ONE (21:33)
[2025-10-28] MEDS: morphine 4 MG/ML inj SYRINge IV ONE (21:33)
[2025-10-28] MEDS: heparin 10,000 units/1 ML INJ IV ONE (21:40)
[2025-10-28 21:42] LABS: MEAN PLATELET VOLUME 8.5 FL (7.4-10.4); RED CELL DISTRIBUTION WIDTH 13.0 % (11.5-14.5)
[2025-10-28] MEDS: heparin 25,000 UNIT/250ml bag 250 ML IV PRN (21:45)
[2025-10-28 21:53] LABS: APTT 24 SECONDS (22-32); INR 1.0 INR
[2025-10-28] MEDS ORDERED: LIDOcaine 1% 30ml preserv. free vial ONE (21:57)
[2025-10-28] MEDS ORDERED: midazolam 1 mg/ML 2ml injection ONE (21:57)
[2025-10-28] MEDS ORDERED: tirofiban 12.5mg in NS 250mL 250 ML IV ONE (21:58)
[2025-10-28] MEDS ORDERED: fentaNYL/PF 50MCG/1 ML 2ML syringe ONE (21:58)
[2025-10-28] MEDS ORDERED: heparin 1,000unit/ml 10ml vial 10 ML ONE (21:58)
[2025-10-28] MEDS ORDERED: iohexol 350 MG/ML 50ML vial IV ONE (21:58)
--- NOTE | 2025-10-28 22:12 | CONSULTATION REPORT ---
Cardiac Consultation Report Providers to CC ~ Subjective Subjective Consultation: Patient was declared to be an acute myocardial infarction after his troponin came back elevated. He came to the ER for trapezius pain and left- sided chest pain. First EKGs showed [address] segment elevation in three and AVF with reciprocal depression one and AVF. Subsequently his pain improved in his 2nd EKG was normal. Initial troponin was normal. Then a much later troponin was obtained which was up to two. His times difficult for him to say if he has pain or not. He admits to having back pain chest pain with exertion during the weeks prior to this presentation. However that seems to be a chronic symptom with him as is gastroesophageal reflux which occurs daily. He has had past renal stones and urinary tract infections. He thinks his cholesterol is elevated. He had variety of antibiotics in the past. He is not on any cardiac medications. He denies recreational drug use of any sort. Brought in apparently by his uncle they are no longer at the bedside. Objective Vitals Vital Signs Date Time Temp Pulse Resp B/P (MAP) Pulse Ox O2 Delivery O2 Flow Rate FiO2 10/28/25 21:33 16 10/28/25 21:00 67 155/92 (113) 99 0 10/28/25 18:36 Room Air* 21 10/28/25 15:53 98.2 Lab Results: 10/28/25 2131 10/28/25 1657 Objective Bearded carotid no bruit chest clear to auscultation percussion heart no murmur no pericardial rub no S3 gallop. Abdomen nontender active bowel sounds pulses plus two in upper and lower extremities. Nystagmus no tremors seems withdrawn slow speech. Coagulation Studies Laboratory Tests Test 10/28/25 16:05 10/28/25 21:31 D-Dimer 0.25 MG/L FEU (0-0.50) D-Dimer Comment Prothrombin Time 10.5 SECONDS (9.0-12.0) INR International Normalized Ratio 1.0 INR Activated Partial Thromboplast Time 24 SECONDS (22-32) Coagulation Comments Other Results Patient had TSH her urges elevated with low T4 of 0.97. Problem\Assessment\Plan Additional Plan Impression: Based on electrocardiogram the acute IN has resolved. However he has has persistent low-grade anterior substernal chest pain. His troponin has risen to two proximally 6-8 hours post presentation. Recommendation: Diagnostic coronary angiography intervention as may be needed. Risks benefits alternatives discussed with patient he agrees. Risks include and not restricted to stroke myocardial infarction renal failure neurologic vascular complications bleeding complications allergic reaction. Emergency coronary bypass grafting and its attendant complications. SCOT JACOBS MD Oct 28, 2025 22:12
[2025-10-28] MEDS: MESSAGE TO NURSING IV ONE (22:18)
[2025-10-28] MEDS ORDERED: metoprolol tartrate 1mg/ml inj IV ONE (22:36)
[2025-10-28] MEDS ORDERED: phenylephrine 10mg/ml inj. ONE (22:40)
[2025-10-28] MEDS ORDERED: atropine 0.1mg/ml 10ml syringe ONE (22:40)
[2025-10-28] MEDS ORDERED: nitroGLYCERIN 500mcg/5mL D5W 5 ML IV ONE (22:52)
[2025-10-28] MEDS ORDERED: verapamil 2.5 mg/ml inj IV ONE (22:55)
[2025-10-29] VITALS (22 sets, daily range): BP systolic 91–182; BP diastolic 59–102; PULSE 52–87; RESP 11–20; TEMP 97–97.1; O2SAT 94–98
--- NOTE | 2025-10-29 00:04 | CARDIAC CATH REPORT ---
Cardiology Post Cath Findings Findings Findings: Cardiology post procedure note: Uncomplicated left heart catheterization left ventriculography coronary arteriography serial right coronary artery stent deployment. Indication inferior wall myocardial infarction. Findings 1. Small inferobasal akinetic segment. Ejection fraction 55%. 2. Left anterior descending ectasia. Left main coronary left anterior descending left circumflex otherwise smooth. 3. Right coronary 100% obstructed at the acute margin. 0 flow. 4. Extensive clot require dottering angioplasty in three serial stents deployed for dissection. PDA was wired daughter. Postprocedure it had collateral flow. Right coronary excellent flow left atrial branch originates from the right coronary. The proximal right coronary is ectatic. Recommendation: 1. Continue heparin and Aggrastat overnight for clot dissolution 2. Patient was hypertensive when sedated normotensive. Beta-blockers not use d ue to intermittent 2-1 heart block during the procedure and sinus bradycardia postprocedure. 3. Received 180 mg of Brilinta in physical laboratory assistant to continue 90 mg p.o. b.i.d. aspirin 81 mg daily Lipitor 40 mg daily 4. Heparin and Aggrastat to be discontinued at 8:00 a.m.. Patient will receive Angio-Seal at 10:00 a.m.. Bedrest for 8 hours thereafter. 5 lisinopril 10 mg started for blood pressure. 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 I can see him as an outpatient. During this hospitalization he requires patient care management associate with respect to disability out of work for awhile during recovery. Requires to establish with a general practitioner he could be referred to [facility]. SCOT JACOBS MD Oct 29, 2025 00:04
[2025-10-29] MEDS ORDERED: nitroGLYCERIN-Tridil 50MG/D5W 250 ML IV PRN ×2 (00:20→00:53)
[2025-10-29] MEDS: nitroGLYCERIN-Tridil 50MG/D5W 250 ML IV ONE (00:33)
[2025-10-29] MEDS ORDERED: normal saline 1000ml 1,000 ML IV SCH (00:40)
[2025-10-29] MEDS: normal saline 1000ml 1,000 ML IV ONE (00:45)
[2025-10-29] MEDS ORDERED: HYDROcodone/acetaminophen 10/325mg tab PO PRN (00:45)
[2025-10-29] MEDS ORDERED: magnesium hydroxide 30ml (MOM) UD suspension PO PRN (00:45)
[2025-10-29] MEDS ORDERED: OXAZEpam 15mg capsule PO PRN (00:45)
[2025-10-29] MEDS ORDERED: ondansetron/PF 4mg/2ml inj IV PRN (00:50)
--- NOTE | 2025-10-29 00:50 | PROGRESS NOTE ---
Progress Note Dictate Providers to CC ~ Antibiotic Ordered?: No Objective Vitals Vital Signs Date Time Temp Pulse Resp B/P (MAP) Pulse Ox O2 Delivery O2 Flow Rate FiO2 10/29/25 00:33 178/98 10/28/25 21:33 16 10/28/25 21:00 67 99 0 10/28/25 18:36 Room Air* 21 10/28/25 15:53 98.2 Lab Results: 10/28/25 2131 10/28/25 1657 Coagulation Studies Laboratory Tests Test 10/28/25 16:05 10/28/25 21:31 D-Dimer 0.25 MG/L FEU (0-0.50) D-Dimer Comment Prothrombin Time 10.5 SECONDS (9.0-12.0) INR International Normalized Ratio 1.0 INR Activated Partial Thromboplast Time 24 SECONDS (22-32) Coagulation Comments Problem\Assessment\Plan Additional Plan Patient seen and evaluated Using HIPPA complaint AV device Rounded with the nursing staff and charge nurse Admitted to be watched over following cath with deployment of 3 stents Currently denies any chest pain, HD stable Alert and orientated in no distress ACS S/P stent placement Dual antiplt per cardiology Yet to start statins Check Hb A1C Continue rest of care MD ERMIAS Otero,KAILASH Mo MD Oct 29, 2025 00:50
[2025-10-29] MEDS ORDERED: potassium Cl 40MEQ/1/2NS 520ml 520 ML IV PRN (01:40)
[2025-10-29] MEDS ORDERED: magnesium sulf-water 2g/50mL 50 ML IV PRN (01:40)
[2025-10-29 04:54] LABS: MEAN PLATELET VOLUME 8.7 FL (7.4-10.4); RED CELL DISTRIBUTION WIDTH 13.1 % (11.5-14.5)
[2025-10-29 05:19] LABS: CREATININE 0.87 MG/DL (0.60-1.10); TOTAL CARBON DIOXIDE 26.1 MMOL/L (24-32); eCRCL 115 ML/MIN; eGFR > 90 ML/MIN
[2025-10-29] MEDS: MESSAGE TO NURSING IV ONE (05:29)
[2025-10-29] MEDS: potassium Cl 20 mEq SR tablet PO PRN (05:36)
[2025-10-29] MEDS: magnesium sulf-water 4G/100mL 100 ML IV PRN (05:36)
[2025-10-29] MEDS ORDERED: DEXT10CA19 PO (07:26)
[2025-10-29] MEDS ORDERED: IXEK80AU2 SQ (07:26)
[2025-10-29] MEDS ORDERED: ALBU8HFA IH (07:26)
[2025-10-29] MEDS ORDERED: DEXT20TA6 PO (07:26)
[2025-10-29] MEDS ORDERED: HYDR50TA65 PO (07:26)
--- NOTE | 2025-10-29 07:34 | ELECTROCARDIOGRAPH REPORT ---
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 BEN Fnoseca Measurements Intervals [place] Rate: 59 P: 49 [place]: 131 QRS: 26 QRSD: 88 T: 63 QT: 429 QTc: 425 Interpretive Statements Sinus bradycardia Minimal ST depression, anterolateral leads ST elev, probable normal early repol pattern Electronically Signed On 10-30-2025 16:52:[address] BEN Fonseca Please click the below link to view image of tracing.
[2025-10-29] MEDS: docusate sod 100mg capsule PO SCH (08:02)
[2025-10-29] MEDS: HYDROcodone/acetaminophen 10/325mg tab PO PRN (08:17)
[2025-10-29] MEDS: HYDROcodone/acetaminophen 5mg/325mg tablet PO PRN (17:18)
--- NOTE | 2025-10-29 18:52 | HISTORY AND PHYSICAL-Residence ---
History & Physical Providers to CC Resident Creating Document: GRACIELA DONNELLY, RES ~ History of Present Illness Primary Medical Doctor: Sd Reason for Admit\Complaint: s/p cardiac catheterization History of Present Illness This is a 35-year-old male who came to the ER with a chief complaint of chest pain. He described chest pain as heaviness in the middle of the chest, radiating to his left arm. The chest pain started yesterday around afternoon, he called the ambulance, EKG was done on site and was told the pain was likely secondary to anxiety and at Tylenol was given without bringing him to the ER. With continued chest pain his aunt brought him to the ER. His initial troponin was 61, 2nd troponin was 2040. Dr. Figueroa was consulted cardiac catheterization was done yesterday. Showed findings of left anterior descending ectasia, right coronary artery 100% obstruction, extensive clot requiring angioplasty in three serial stent thiamine for dissection. Postprocedure patient had collateral flow. The proximal right coronary artery is ectatic. Patient did have previous history of chest pain, but it was secondary to anxiety disorder. Procedure patient is doing fine, currently on aspirin, Brilinta 90 mg b.i.d., atorvastatin. Patient had intermittent 2-1 heart block during the procedure and sinus bradycardia postprocedure. beta blockers are not recommended. Patient had a positive family history. His maternal great grandfather with heart attack at the age of 30s, paternal grand father with heart attack at the age of 40s. His only known history is psoriasis and psoriatic arthritis. No known history of connective tissue disorder. History of severe HIT related complications in mother Allergies: Coded Allergies: No Known Allergies (Unverified , 10/28/25) Home Medications Home Medications Active Reported Pro-Air Inhaler (Albuterol) 8.5 Gm Inhaler 1 Puffs IH Q4H PRN Hydroxyzine HCl 50 Mg Tablet 1 Tab PO HS PRN Dextroamp-Amphet ER 10 mg Cap (Dextroamphetamine/Amphetamine) 10 Mg Cap.er.24h 1 Cap PO QAM Amphetamine Salts 20 mg Tablet (Dextroamphetamine/Amphetamine) 20 Mg Tablet 1 Tab PO BID Taltz Autoinjector (Ixekizumab) 80 Mg/Ml Auto.injct 1 Ml SQ Q28D Past Medical History Past Medical History Psoriasis Psoriatic arthritis Past Surgical History Surgical History Comment No other surgical history. Family History Family History: Patient reports no known family medical history. Past Social History Social History Comment He smokes about one pack a day, for more than 10 years No history of alcohol use No history of drug use including cocaine Smoking: Quit less than 1 year Alcohol Use: None Drug Use: None Lives with: S/O Lives In: Home Occupation: employed ROS Constitutional: Denies: no symptoms reported, see HPI, chills, diaphoresis, fever, malaise, weakness, other Eyes: Denies: no symptoms reported, see HPI, pain, discharge, blurred vision, double vision, itching, photophobia, redness, tearing, other ENT: Denies: no symptoms reported, see HPI, ear pain, ear bleeding, ear discharge, hearing loss, ear ringing, nose pain, nose bleeding, nose congestion, nose discharge, throat pain, throat swelling, voice change, mouth pain, mouth bleeding, mouth swelling, other Respiratory: Denies: no symptoms reported, see HPI, cough, orthopnea, shortness of breath, SOB with exertion, SOB at rest, stridor, wheezing, hemoptysis, pain with breathing, other Cardiovascular: Reports: chest pain Gastrointestinal: Denies: no symptoms reported, see HPI, abdomen distended, abdominal pain, nausea, vomiting, diarrhea, constipated, melena, hematemesis, hematochezia, rectal bleeding, rectal pain, dysphagia, poor appetite, poor fluid intake, other Genitourinary: Denies: no symptoms reported, see HPI, burning, discharge, dysuria, frequency, flank pain, hematuria, incontinence, pain, decreased urine output, urgency, other Male Genitalia: Denies: no symptoms reported, see HPI, penile discharge, penile sore, testicular pain, testicular swelling, other Neurological: Denies: no symptoms reported, see HPI, speech problem, headache, dizziness, fainting, tingling, left sided numbness, right sided numbness, left sided weakness, right sided weakness, problems walking, unable to move lower ext, unable to move upper ext, petit mal seizures, tonic-clonic seizures, cognitive dysfunction, other Musculoskeletal: Denies: no symptoms reported, see HPI, pain, swelling, back pain, gout, joint pain, joint swelling, muscle pain, muscle swelling, muscle stiffness, neck pain, other Integumentary: Denies: no symptoms reported, see HPI, rash, itching, lesions, lumps, bruise(s), wound(s), laceration(s), dryness, change in color, other Exam Vitals: Vital Signs Date Time Temp Pulse Resp B/P (MAP) Pulse Ox O2 Delivery O2 Flow Rate FiO2 10/29/25 17:18 16 10/29/25 17:04 Room Air 10/29/25 16:33 60 10/29/25 16:00 96/64 (75) 96 10/29/25 00:25 98.1 10/28/25 21:00 0 10/28/25 18:36 21 General: General: Awake and Alert, no acute distress. HEENT: Conjunctiva pink, Sclera clear, Mucus Membranes moist. Resp: Unlabored. Lungs clear to auscultation bilaterally. Heart: Regular Rate and rhythm, normal S1 and S2 without murmur, rub or gallop. Abdomen: Soft and non tender no organomegaly Extremities: No edema, cyanosis, clubbing Neuro: No focal neurological deficits Skin: Diffuse pruritic and scaly rash present. Diagnostic Data Last Recorded Lab Results: 10/29/2541410/29/25414 Diagnostic Data: Laboratory Tests Test 10/28/25 16:05 10/28/25 21:31 10/29/25 04:15 D-Dimer 0.25 MG/L FEU (0-0.50) D-Dimer Comment Prothrombin Time 10.5 SECONDS (9.0-12.0) INR International Normalized Ratio 1.0 INR Activated Partial Thromboplast Time 24 SECONDS (22-32) APTT (Heparin Protocol) 65 SECONDS (45-60) H Coagulation Comments Additional Plan Assessment This is 35-year-old male with a history of psoriasis was brought to the ER for chest pain. Was diagnosed with NSTEMI and cardiac catheterization was done by Dr. Figueroa stenting of right coronary artery. Plan NSTEMI s/p PCI Extensive clot in the RCA Acute coronary artery disease Patient presented with chest pain. 1st troponin was 61, 2nd troponin 2041 EKG showed 1 mm Hill gave history segment elevation in lead three and AVF. Subsequently pain improved in 2nd EKG was normal. Dr. Figueroa was consulted cardiac catheterization was done yesterday. Showed findings of left anterior descending ectasia, right coronary artery 100% obstruction, extensive clot requiring angioplasty in three serial stent thiamine for dissection. Postprocedure patient had collateral flow. The proximal right coronary artery is ectatic. Plan Continuing aspirin 81 mg, Brilinta 90 mg b.i.d., lovastatin 40 mg. Lipid panel ordered Echo ordered. Bradycardia Patient had intermittent 2-1 heart block during the procedure and sinus bradycardia postprocedure. Review of Psoriasis Patient uses ixekizumab every week Code status: Full code DVT prophylaxis: Aspirin and Brilinta Diet: Heart Healthy diet Graciela Donnelly M.D PGY2 \ Date of Service: Oct 29, 2025 Billing Provider: NORIS DIAZ MD Common Visit Codes: 18677-XHESFBU INP/OBS CARE (HIGH) Secondary Visit Codes: 39022-YXLOJYMM CARE PLAN 30 MINUTES GRACIELA DONNELLY, RES Oct 29, 2025 18:52 NORIS DIAZ MD Oct 30, 2025 06:34
--- NOTE | 2025-10-29 20:25 | PROGRESS NOTE ---
Progress Note Cardiology Providers to CC ~ Subjective Subjective Progress note: Postop day one inferior wall VA right coronary stent. PDA with collateral. Sister at bedside. Patient wanted to go on a trip and is trying to get his money back. He was supposed to leave tomorrow. He is explained to him and his sister that that is not possible. And they were instructed to contact patient critical care educator to assist them in obtaining their money back if possible. He does not have any angina no arrhythmias. Intermittent 2-1 heart block has resolved. Objective Result Diagram: 10/29/2541410/29/25414 Objective History of has been deployed in right groin. Heparin is an Aggrastat are off. Right groin is stable peripheral pulses intact. No pericardial rub lungs are clear. Sinus rhythm. Coagulation Studies Laboratory Tests Test 10/28/25 16:05 10/28/25 21:31 10/29/25 04:15 D-Dimer 0.25 MG/L FEU (0-0.50) D-Dimer Comment Prothrombin Time 10.5 SECONDS (9.0-12.0) INR International Normalized Ratio 1.0 INR Activated Partial Thromboplast Time 24 SECONDS (22-32) APTT (Heparin Protocol) 65 SECONDS (45-60) H Coagulation Comments Problem\Assessment\Plan Additional Plan Assessment improved and stable. Recommendation: Out of bed 8 hours post Angio-Seal. Transfer to progressive care unit increase activity in a.m.. Ambulatory in hallway in a.m.. Follow up activity discussed with patient and with his sister. SCTO JACOBS MD Oct 29, 2025 20:25
[2025-10-30 02:00] VITALS: BP 114/80; PULSE 62; RESP 15; TEMP 97.6; O2SAT 96
[2025-10-30 06:00] VITALS: BP 116/70; PULSE 71; RESP 15; TEMP 97.3; O2SAT 96
[2025-10-30 06:51] LABS: MEAN PLATELET VOLUME 8.5 FL (7.4-10.4); RED CELL DISTRIBUTION WIDTH 12.9 % (11.5-14.5)
[2025-10-30 07:25] LABS: CHOL/HDL RATIO 4.9 (0.00-4.99); LDL CHOLESTEROL 122 MG/DL (50-100)
[2025-10-30 08:00] VITALS: RESP 16; O2SAT 97
[2025-10-30 08:35] LABS: CREATININE 1.05 MG/DL (0.60-1.10); TOTAL CARBON DIOXIDE 25.5 MMOL/L (24-32); eCRCL 95 ML/MIN; eGFR 80 ML/MIN
[2025-10-30 11:00] VITALS: BP 122/85; PULSE 67; RESP 14; TEMP 97.8; O2SAT 95
[2025-10-30 15:00] VITALS: BP 103/62; PULSE 69; RESP 20; TEMP 98; O2SAT 96
[2025-10-30] MEDS ORDERED: TICA90TA PO (15:09)
[2025-10-30] MEDS ORDERED: LISI10TA27 PO (15:09)
[2025-10-30] MEDS ORDERED: ATOR20TA66 PO (15:09)
[2025-10-30] MEDS ORDERED: ENOX60SY7 SQ (15:09)
[2025-10-30 15:15] LABS: LEUKOCYTE ESTERASE ,URINE NEGATIVE (Neg); NITRITES, URINE NEGATIVE (Neg); OCCULT BLOOD,URINE NEGATIVE (Neg)
[2025-10-30 15:18] LABS: UA COLLECTION TYPE NON-SPECIFIED
--- NOTE | 2025-10-30 15:20 | VASCULAR REPORT ---
Bilateral lower extremity venous duplex Clinical History: Pain Comparison: None Technique: Duplex Doppler evaluation of the deep venous systems of both lower extremities from the common femoral veins to the popliteal veins including color Doppler and spectral/pulsed waveform analysis was performed. Findings: RIGHT SIDE: The common femoral vein demonstrates appropriate compressibility and waveform variability. There is compressibility/patency of the great saphenous vein at the proximal thigh. The femoral vein demonstrates appropriate compressibility and waveform variability. The deep femoral vein demonstrates appropriate compressibility and waveform variability. The popliteal vein demonstrates appropriate compressibility and waveform variability. There is normal compressibility at the tibioperoneal trunk. LEFT SIDE: The common femoral vein demonstrates appropriate compressibility and waveform variability. There is compressibility/patency of the great saphenous vein at the proximal thigh. The femoral vein demonstrates appropriate compressibility and waveform variability. The deep femoral vein demonstrates appropriate compressibility and waveform variability. The popliteal vein demonstrates appropriate compressibility and waveform variability. There is normal compressibility at the tibioperoneal trunk. Impression: No right or left femoropopliteal venous thrombosis.
[2025-10-30 15:33] LABS: URINE AMPHETAMINE SCREEN NEGATIVE (Neg); URINE BARBITUATE SCREEN NEGATIVE (Neg); URINE BENZODIAZEPINES SCREEN POSITIVE (Neg); URINE CANNABINOID SCREEN NEGATIVE (Neg); URINE COCAINE SCREEN NEGATIVE (Neg); URINE METHADONE SCREEN NEGATIVE (Neg); URINE OPIATE SCREEN POSITIVE (Neg); URINE PHENCYCLIDINE SCREEN NEGATIVE (Neg)
[2025-10-30] MEDS ORDERED: enoxaparin 100mg/ml syringe SUBCUT ONE (16:20)
[2025-10-30] MEDS ORDERED: ENOX100S3 SQ (16:25)
--- NOTE | 2025-10-30 17:00 | CARDIOLOGY REPORT ---
APPROVED REPORT EXAM: Comprehensive 2D, Doppler, and color-flow Echocardiogram. Patient Location: 3023C Blood Pressure: 114/80 mmHg Heart Rate: 66 bpm Rhythm: Sinus Indications Coronary Artery Disease Troponin: 2040 Asthma Angioplasty with stent x 3, (10/29/25, [facility]) GUIDE DOG INSTRUCTOR: Harish Figueroa MD NO Previous ECHO 2D Dimensions LA Diam 3.5 cm IVSd 0.8 (0.7-1.1cm) LVDd 4.6 cm PWd 0.9 (0.7-1.1cm) IVSs 1.2 (0.8-1.2cm) LVDs 3.0 (2.5-4.0cm) PWs 1.5 (0.8-1.2cm) LVOT Diameter 2.16 (1.8-2.4cm) LVEF(%) 57.9 (>50%) Ao Asc Diam. 2.88 cm IVC 14.33 mm FS (%) 30.3 % SV 49.0 ml CO 3.4 L/min M-Mode Dimensions Left Atrium(MM) 3.34 (2.5-4.0cm) Aortic Root 2.59 (2.2-3.7cm) Aortic Cusp Exc 1.89 (1.5-2.0cm) MV EPSS 1.3 (<0.5cm) Aortic Valve AoV Peak Bharath. 142.7 cm/s AoV VTI 26.5 cm AO Peak GR. 8.1 mmHg AO Mean GR. 4 mmHg LVOT VTI 25.18 cm LVOT Peak Bharath. 116.3 cm/s CARMEN(VTI)/BSA 3.50 cm2/m2 CARMEN (VTI) 3.50 cm2 AV DI 0.95 % Mitral Valve MV E Velocity 91.1 cm/s MV Peak Gr. 5 mmHg MV DECEL TIME 228 ms MV A Velocity 70.5 cm/s MV PHT 56 ms E/A Ratio 1.3 MVA (PHT) 3.93 cm2 MV VMax 114.5 cm/s TDI Lateral E' P. V 16.72 cm/s E/Lateral E' 5.4 Tricuspid Valve TR P. Velocity 200 cm/s RAP ESTIMATE 10 mmHg TR Peak Gr. 16 mmHg RVSP 26 mmHg LEFT VENTRICLE Normal LV size and wall thickness. Overall systolic function is normal. Overall LVEF is 60-65%. RIGHT VENTRICLE RV is normal size and function. ATRIA The left atrium size is normal. AORTIC VALVE Trileaflet AV appears mildly sclerotic without stenosis. No insufficiency by color and spectral flow Doppler. MITRAL VALVE Mitral valve leaflets are mildly thickened with mild annular calcification. Mild regurgitation. TRICUSPID VALVE The tricuspid valve is normal in structure with trace regurgitation. PULMONIC VALVE Pulmonic valve is grossly normal in structure with physiologic insufficiency. GREAT VESSELS The aortic root is normal in size. The ascending aorta is normal in size. The IVC is normal in size and collapses >50% with inspiration. PERICARDIUM Normal pericardium. No effusion. Prominent anterior epicardial fat pad is present. Other Information Study Quality: Adequate Conclusion Overall LVEF is 60-65%. Normal LV size and wall thickness. Overall systolic function is normal. RV is normal size and function. Trileaflet AV appears mildly sclerotic without stenosis. No insufficiency by color and spectral flow Doppler. Mitral valve leaflets are mildly thickened with mild annular calcification. Mild regurgitation. The tricuspid valve is normal in structure with trace regurgitation. Pulmonic valve is grossly normal in structure with physiologic insufficiency. Normal pericardium. No effusion. Prominent anterior epicardial fat pad is present.
[2025-10-30] MEDS: enoxaparin 60mg/0.6ml syringe SQ ONE (18:15)
[2025-10-30] MEDS: enoxaparin 30mg/0.3ml syringe SQ ONE (18:15)
--- NOTE | 2025-10-30 18:40 | DISCHARGE SUMMARY-Residence ---
Discharge Summary Providers to CC Resident Creating Document: DOMENICO DONNELLYDANNDANOANUPAM ~ Discharge Summary Admission Diagnosis: STEMI Hospital Course DATE OF ADMISSION: 10/28/2025 DATE OF DISCHARGE: 10/30/2025 Labs at the time of discharge Hemoglobin 15.4 ESR 5 Triglycerides 225 Total cholesterol 175 LDL 122 Sodium 140 Potassium 4.1 Creatinine 1.05 Pending labs Factor five Leiden Antithrombin three Protein C resistance Protein S antigen Prothrombin Lupus anticoagulant Anticardiolipin antibody Beta two glycoprotein antibody Lipoprotein a Cardiogram Overall LVEF is 60-65%. Normal LV size and wall thickness. Overall systolic function is normal. RV is normal size and function. Trileaflet AV appears mildly sclerotic without stenosis. No insufficiency by color and spectral flow Doppler. Mitral valve leaflets are mildly thickened with mild annular calcification. Mild regurgitation. The tricuspid valve is normal in structure with trace regurgitation. Pulmonic valve is grossly normal in structure with physiologic insufficiency. Normal pericardium. No effusion. Prominent anterior epicardial fat pad is present. Vascular ultrasound No right or left femoral popliteal thrombosis. Discharge Diagnosis\Comment: STEMI s/p RCA stent placement Extensive clot in the RCA requiring three stents Acute coronary artery disease Bradycardia History of psoriasis Operations\Procedures: Cardiac catheterization with stent placement by Dr. Figueroa on 10/28/2025 Consultants: Dr. Figueroa Complications: None Condition on DC: Stable New Medications: Enoxaparin Sodium* (Lovenox*) 100 Mg Syringe 87 MG SQ BID for 14 Days, #28 SYR Atorvastatin Calcium (Atorvastatin Calcium) 20 Mg Tablet 40 MG PO DAILY for 30 Days, #30 TAB Lisinopril (Lisinopril) 10 Mg Tablet 10 MG PO Q24H for 30 Days, #30 TAB Ticagrelor (Brilinta) 90 Mg Tablet 90 MG PO BID for 30 Days, #60 TAB Continued Medications: albuterol inhaler (Pro-Air Inhaler) 8.5 Gm Inhaler 1 PUFFS IH Q4H PRN for SOB or wheezing Dextroamphetamine/Amphetamine (Amphetamine Salts 20 mg Tablet) 20 Mg Tablet 1 TAB PO BID Dextroamphetamine/Amphetamine (Dextroamp-Amphet ER 10 mg Cap) 10 Mg Cap.er.24h 1 CAP PO QAM Hydroxyzine HCl (Hydroxyzine HCl) 50 Mg Tablet 1 TAB PO HS PRN for insomnia Ixekizumab (Taltz Autoinjector) 80 Mg/Ml Auto.injct 1 ML SQ Q28D Discharge Summary: This is a 35-year-old male who came to the ER with a chief complaint of chest pain. He described chest pain as heaviness in the middle of the chest, radiating to his left arm. The chest pain started around afternoon, he called the ambulance, EKG was done on site and was told the pain was likely secondary to anxiety and a Tylenol was given without bringing him to the ER. With continued chest pain his aunt brought him to the ER. Patient did have previous history of chest pain, but it was secondary to anxiety disorder. Patient had a positive family history. His maternal great grandfather with heart attack at the age of 30s, paternal grand father with heart attack at the age of 40s. His only known history is psoriasis and psoriatic arthritis. No known history of connective tissue disorder. History of severe HIT related complications in mother His initial troponin was 61, 2nd troponin was 2040. Dr. Figueroa was consulted cardiac catheterization was done . Findings of cardiac catheterization 1. Small inferobasal akinetic segment. Ejection fraction 55%. 2. Left anterior descending ectasia. Left main coronary left anterior desce nding left circumflex otherwise smooth. 3. Right coronary 100% obstructed at the acute margin. 0 flow. 4. Extensive clot require dottering angioplasty in three serial stents deployed for dissection. PDA was wired daughter. Postprocedure it had collateral flow. Right coronary excellent flow left atrial branch originates from the right coronary. The proximal right coronary is ectatic. Surgery heparin and Aggrastat has been continued overnight for clot resolution. Angio-Seal was done later. Patient had intermittent 2-1 heart block during the procedure and sinus bradycardia postprocedure. beta blockers are not recommended. Started on aspirin 81 mg, Brilinta 90 mg b.i.d., atorvastatin 40 mg. Started on lisinopril 10 mg for blood pressure. Considering extensive clot at such a young age, patient needs further workup The following Labs has been ordered Factor five Leiden Antithrombin three Protein C resistance Protein S antigen Prothrombin Lupus anticoagulant Anticardiolipin antibody Beta two glycoprotein antibody Lipoprotein a Considering high risk of these conditions, started on Lovenox 1 mg/kg b.i.d. and we will review again in the outpatient Patient is stable to be discharged home At the time of discharge patient had the following physical examination findings General: Awake and Alert, no acute distress. HEENT: Conjunctiva pink, Sclera clear, Mucus Membranes moist. Resp: Unlabored. Lungs clear to auscultation bilaterally. Heart: Regular Rate and rhythm, normal S1 and S2 without murmur, rub or gallop. Abdomen: Soft and non tender no organomegaly Extremities: No edema, cyanosis, clubbing Neuro: No focal neurological deficits Medications Aspirin 81 mg Brilinta 90 mg b.i.d. Atorvastatin 40 mg daily Lisinopril 10 mg daily Lovenox 1 mg/kg b.i.d. Discharge instructions Follow up with PCP in two weeks Follow up with home health caregiver Continue to take aspirin, Brilinta, Lovenox Lab CBC in four days Call 911 or return to ER in case of chest pain or any bleeding. *Problems/Diagnosis: (1) STEMI (ST elevation myocardial infarction) Total Time Spent on D/C: > 30 Minutes Date of Service: Oct 30, 2025 Billing Provider: NORIS DIAZ MD Common Visit Codes: 90339-UTY/OBS DISCH DAY >30min GRACIELA DONNELLY, RES Oct 30, 2025 18:27 NORIS DIAZ MD Oct 31, 2025 08:56
--- NOTE | 2025-10-30 19:34 | PROGRESS NOTE ---
Progress Note Cardiology Providers to CC ~ Subjective Subjective Cardiology progress note: Inferior wall myocardial infarction intermittent 2-1 heart block. No recurrence since stent deployed. Patient tolerating medications well. Guideline directed therapy. Objective Result Diagram: 10/30/2562610/30/25626 Objective No pericardial rub lungs are clear no peripheral edema right groin is well healed pulses intact. Coagulation Studies Laboratory Tests Test 10/28/25 16:05 10/28/25 21:31 10/29/25 04:15 10/30/25 14:17 D-Dimer 0.25 MG/L FEU (0-0.50) D-Dimer Comment Prothrombin Time 10.5 SECONDS (9.0-12.0) INR International Normalized Ratio 1.0 INR Activated Partial Thromboplast Time 24 SECONDS (22-32) APTT (Heparin Protocol) 65 SECONDS (45-60) H Coagulation Comments Problem\Assessment\Plan Additional Plan Assessment: Active asymptomatic tolerating medication. No high-grade arrhythmias. Rare PVCs. Recommendation: Patient is ready for discharge. Follow up in office. Establish with a primary care physician. SCOT JACOBS MD Oct 30, 2025 19:34
--- NOTE | 2025-11-02 14:38 | CARDIOLOGY REPORT ---
DATE OF SERVICE: 10/28/2025 DICTATING PHYSICIAN: Jayson Figueroa MD PROCEDURES: * Left heart catheterization. * Left ventriculography. * Right coronary artery PTCA. * Serial right coronary artery stent deployment. * Conscious sedation administration 60 minutes. * Right iliofemoral arteriogram. BRIEF HISTORY AND INDICATION: A 35-year-old male presented with inferior wall [place]. He has hypertension, obesity, renal stones, and gastroesophageal reflux disorder. Risks, benefits, and alternatives of diagnostic coronary angiography were discussed with him. Intervention was discussed with him. Possibility of emergency coronary artery bypass grafting and its attendant complications were discussed. Risks included but not restricted to , stroke, myocardial infarction, renal failure, neurologic/vascular complication, bleeding complication, allergic reaction. He has decided to proceed. He is in a lot of pain, very anxious, restless. TECHNIQUE: Following usual sterile preparation and draping, the right groin was infiltrated with 10 mL of 1% lidocaine local anesthetic. Conscious sedation was achieved with 25 mg of Benadryl and 2 mg of Versed, 100 mcg of fentanyl. He was brought to the wharf labourer on intravenous heparin infusion. He received 4000 bolus in wharf labourer. Aggrastat was started at 25 mcg per kilogram loading dose, continued at 0.15 mcg per kilogram per minute. During the procedure, he received intracoronary nitroglycerin 100 mcg, metoprolol 25 mg intravenously for rate control. Following single wall puncture of the right femoral artery, with J-tip guidewire lead, a 6-Guyanese sheath was introduced to the right femoral artery. Left and right coronary arteriography was performed in multiple projectional obliquities. Right coronary angiography was performed. Vessel was noted to be completely occluded after the first large right ventricular branch. A 6-Guyanese sheath was exchanged for a 7-Guyanese sheath and a 6-Guyanese femoral right guide with side hole was used for intervention. A BMW wire was positioned into the distal right coronary. Serial stents were deployed with prior PTCA of the right coronary from mid to apex of the posterior descending of the distal right coronary due to extensive thrombus formation. Serial Ozzie stents were deployed 2.25 mm x 18, 2 mm x 18, and 2 mm x 22. At termination, balloon wire system was removed and repeat angiography was performed. The BMW wire was reintroduced into the posterior descending artery where crossed stent struts; however, the smallest balloon would not follow the wire. Further efforts were discontinued as the prior success could have been ruined. He was pain-free, ST segments resolved. 210 mL of Omnipaque 350 contrast was administered. Fluoroscopy time was 4.4 minutes. Radiation exposure was 4459 cGy per cm2. FINDINGS: AO 143/80, LV 143/3-25 post intervention. 5 feet 8 inches, 193 pounds. Left ventriculogram: Severe mid inferior hypokinesis. Ejection fraction 55%. Right iliofemoral artery is adequate for Angio-Seal. Left main coronary has intimal irregularities. Proximal left anterior descending has mild ectasia with 15% narrowing. The anterior descending wraps around the apex of myocardium. There is a first intermediate in diagonal distribution, a second intermediate in left circumflex distribution, then posterolateral and posterior descending arteries. The left circumflex has intimal irregularities. Right coronary is ectatic in the proximal to mid segment to 5.5 mm with multiple accordion-appearing 15% narrowings. There is a large right ventricular branch. 100% mid right coronary with thrombus is noted. Post intervention, PATRICK 0 flow improves to PATRICK 3 without residual stenosis. The posterior descending artery has collateralization. Collateralization is from right to right. RESULTS: * Severe mid inferior hypokinesis, ejection fraction of 55%. * Left main coronary with intimal irregularities. * Mildly ectatic proximal left anterior descending with 15% narrowings. * Left circumflex with intimal irregularities. * 100% mid right coronary with extensive thrombus formation, PATRICK 0 flow. * PATRICK 3 flow post intervention, serial stents posterior descending with [id number] collaterals. COMMENT: The patient will be continued on Aggrastat and heparin overnight due to extensive thrombus formation. Brilinta is to be continued. Aspirin to be continued. Beta blockers held at this time as he had recurrent episodes of 2:1 heart block during the procedure. Jayson Figueroa MD TID: [id number] RECEIPT: [id number] [facility]
[2025-11-04 05:17] LABS: LIPOPROTEIN A 36.1 nmol/L (<75.0)
[2025-11-05 05:28] LABS: PROTEIN S, TOTAL 83 % (60-150)
[2025-11-05 15:12] LABS: ACTIVATED PROTEIN C RESISTANCE 3.1 ratio (2.2-3.5)
[2025-11-05 17:55] LABS: LUPUS REFLEX INTERPRETATION Comment: (.)
== END 2025-10-30 18:45 | disposition home or self-care (01) | DRG 322 ==
LOC: ER 15:44 → CICU 2S 23:57 → PCU 3S 10-29 16:47
PROVIDERS: ADMIT Internal Medicine; ATTEND Internal Medicine
PROC: 027036Z Dilation of Coronary Artery, One Artery with Three Drug-eluting Intraluminal Devices, Percutaneous Approach (ICD-10-PCS; principal; 2025-10-28)
PROC: 4A023N7 Measurement of Cardiac Sampling and Pressure, Left Heart, Percutaneous Approach (ICD-10-PCS; 2025-10-28)
PROC: B2111ZZ Fluoroscopy of Multiple Coronary Arteries using Low Osmolar Contrast (ICD-10-PCS; 2025-10-28)
PROC: B2151ZZ Fluoroscopy of Left Heart using Low Osmolar Contrast (ICD-10-PCS; 2025-10-28)
PROC: B41F1ZZ Fluoroscopy of Right Lower Extremity Arteries using Low Osmolar Contrast (ICD-10-PCS; 2025-10-28)
PROC: B41C1ZZ Fluoroscopy of Pelvic Arteries using Low Osmolar Contrast (ICD-10-PCS; 2025-10-28)
DX: I21.19 ST elevation (STEMI) myocardial infarction involving other coronary artery of inferior wall (principal); D75.1 Secondary polycythemia; E03.8 Other specified hypothyroidism; J44.89 Other specified chronic obstructive pulmonary disease; I10 Essential (primary) hypertension; I25.10 Atherosclerotic heart disease of native coronary artery without angina pectoris; I49.3 Ventricular premature depolarization; F41.9 Anxiety disorder, unspecified; G89.29 Other chronic pain; M54.9 Dorsalgia, unspecified; R00.1 Bradycardia, unspecified; Z63.4 Disappearance and death of family member; L40.9 Psoriasis, unspecified; I45.9 Conduction disorder, unspecified; Z87.442 Personal history of urinary calculi; Z79.899 Other long term (current) drug therapy
CPT/HCPCS: 93306; 93458; 99291; C9606; 36415; 71045; 80048; 80053; 80061; 80305; 81003; 81479; 83036; 83695; 83735; 83880; 83891; 83894; 83898; 84439; 84443; 84484; 85025; 85300; 85301; 85305; 85306; 85379; 85610; 85613; 85651; 85730; 85732; 86140; 86146; 86147; 86885; 86900; 86901; 87081; 93005; 93970; 94640; 94760; 99152; 99153; A6258; A6449; A6590; C1725; C1760; C1769; C1874; C1894; G0378; J0461; J1200; J1644; J1650; J2003; J2250; J2270; J2371; J2405; J3010; J3246; J3475; J3490; J7030; J7040; Q9967